=== PATIENT | female | born 1985 | race Caucasian/White ===

== ENCOUNTER 2016-08-13 17:50 | Emergency (ER) | payer OTHER ==
[~2016-08-13] VITALS: Ht 165.1 cm; Wt 50.5 kg
[~2016-08-13 17:50] MED LIST: PREN1CAP17 PO; ZOLO50TA PO
[2016-08-13 17:52] VITALS: BP 119/74; PULSE 74; RESP 16; TEMP 98.3; O2SAT 99
--- NOTE | 2016-08-13 18:14 | PD ---
HPI Chief Complaint: Related Problem Time Seen by Provider: 18:14 Travel History International Travel<30 days: No Contact w/Intl Traveler<30days: No Traveled to known affect area: No History of Present Illness HPI 31-year-old female, approx 7 weeks , presents to the emergency department with complaint of intermittent right lower quadrant abdominal cramping since yesterday. Reports nausea that is unchanged since nausea started during . Denies vomiting. Denies fever. Had a normal bowel movement today. Denies vaginal bleeding. Denies dysuria, but reports urinary frequency. Last menstrual period June 25. 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 Has an appointment scheduled on September 02 for first appointment. Allergies to penicillin. Has no other medical complaints. No other modifying factors or associated signs and symptoms. PFSH Past Medical History Hx Anticoagulant Therapy: No Cardiovascular Problems: No Chemotherapy: No Cerebrovascular Accident: No Diabetes: No Diminished Hearing: No Respiratory: No Immunizations Current: Yes ?: LMP: 06/25/16 : 2 Para: 1 Past Surgical History Hysterectomy: No Social History Alcohol Use: No Tobacco Use: No Substance Use: No Allergies-Medications (Allergen,Severity, Reaction): Coded Allergies: Penicillin (Verified Allergy, Severe, swelling, hives, 04/19/16) Reported Meds & Prescriptions Reported Meds & Active Scripts Active Macrobid (Nitrofurantoin Monohydrate Macrocrystals) 100 Mg Capsule 100 Mg PO BID 7 Days Review of Systems Except as stated in HPI: all other systems reviewed are Neg Physical Exam Narrative GENERAL: Well-nourished, well-developed female patient, in no acute distress; afebrile SKIN: Warm and dry. HEAD: Atraumatic. Normocephalic. EYES: Pupils equal and round. No scleral icterus. No injection or drainage. ENT: Mucosa pink and moist. Airway patent. NECK: Trachea midline. CARDIOVASCULAR: Regular rate and rhythm. No murmur appreciated. RESPIRATORY: No accessory muscle use. Clear to auscultation. Breath sounds equal bilaterally. GASTROINTESTINAL: Abdomen soft, tenderness on palpation to right lower quadrant , nondistended. Hepatic and splenic margins not palpable. Bowel sounds are active 4 quadrants. Nonrigid. No guarding. BACK: No CVA tenderness. MUSCULOSKELETAL: No obvious deformities. No clubbing. No cyanosis. No edema. NEUROLOGICAL: Awake and alert. Oriented 3. No obvious cranial nerve deficits. Motor grossly within normal limits. Normal speech. PSYCHIATRIC: Appropriate mood and affect; insight and judgment normal. Data Data Last Documented VS Vital Signs Date Time Temp Pulse Resp B/P Pulse Ox O2 Delivery O2 Flow Rate FiO2 08/13/16 20:45 75 14 109/58 100 Room Air 08/13/16 17:52 98.3 Orders Urinalysis - C+S If Indicated (08/13/16 18:14) Ed Urine Pregnancytest Poc (08/13/16 18:14) Beta Hcg (Quant/Titer) (08/13/16 18:18) Complete Blood Count With Diff (08/13/16 18:18) Comprehensive Metabolic Panel (08/13/16 18:18) Iv Access Insert/Monitor (08/13/16 18:18) Sodium Chlor 0.9% 1000 Ml Inj (Ns 1000 M (08/13/16 18:18) Sodium Chloride 0.9% Flush (Ns Flush) (08/13/16 18:30) Acetaminophen (Tylenol) (08/13/16 18:30) Us Pelvis (Ques Pr/Ect)W Trans (08/13/16 ) Potassium Chloride (Kcl) (08/13/16 20:30) Nitrofurantoin Monohyd Macrocr (Macrobid (08/13/16 20:30) Urine Culture (08/13/16 20:36) Labs Laboratory Tests Test 08/13/16 08/13/16 18:25 18:29 Urine Color YELLOW Urine Turbidity HAZY Urine pH 6.0 Urine Specific [place] 1.019 Urine Protein NEG mg/dL Urine Glucose (UA) NEG mg/dL Urine Ketones NEG mg/dL Urine Occult Blood NEG Urine Nitrite NEG Urine Bilirubin NEG Urine Urobilinogen LESS THAN 2.0 MG/DL Urine Leukocyte Esterase LARGE Urine WBC 2 /hpf Urine Squamous Epithelial 9 /hpf Cells Urine Bacteria OCC /hpf Urine Mucus FEW /lpf Microscopic Urinalysis Comment CULT NOT INDICATED White Blood Count 9.3 TH/MM3 Red Blood Count 4.30 MIL/MM3 Hemoglobin 12.6 GM/DL Hematocrit 37.2 % Mean Corpuscular Volume 86.5 FL Mean Corpuscular Hemoglobin 29.3 PG Mean Corpuscular Hemoglobin 33.8 % Concent Red Cell Distribution Width 13.1 % Platelet Count 224 TH/MM3 Mean Platelet Volume 8.8 FL Neutrophils (%) (Auto) 70.4 % Lymphocytes (%) (Auto) 21.7 % Monocytes (%) (Auto) 6.4 % Eosinophils (%) (Auto) 1.1 % Basophils (%) (Auto) 0.4 % Neutrophils # (Auto) 6.5 TH/MM3 Lymphocytes # (Auto) 2.0 TH/MM3 Monocytes # (Auto) 0.6 TH/MM3 Eosinophils # (Auto) 0.1 TH/MM3 Basophils # (Auto) 0.0 TH/MM3 CBC Comment DIFF FINAL Differential Comment Sodium Level 137 MEQ/L Potassium Level 3.3 MEQ/L Chloride Level 102 MEQ/L Carbon Dioxide Level 25.4 MEQ/L Anion Gap 10 MEQ/L Blood Urea Nitrogen 10 MG/DL Creatinine 0.56 MG/DL Estimat Glomerular Filtration 125 ML/MIN Rate Random Glucose 74 MG/DL Calcium Level 8.6 MG/DL Total Bilirubin 0.4 MG/DL Aspartate Amino Transf 8 U/L (AST/SGOT) Alanine Aminotransferase 15 U/L (ALT/SGPT) Alkaline Phosphatase 45 U/L Total Protein 7.4 GM/DL Albumin 4.0 GM/DL Human Chorionic Gonadotropin, 12663 MIU/ML Quant MDM Medical Decision Making Medical Screen Exam Complete: Yes Emergency Medical Condition: Yes Medical Record Reviewed: Yes Differential Diagnosis Pyelonephritis, UTI, appendicitis, ectopic Narrative Course 31-year-old female with right lower quadrant abdominal pain. She is approximately 7 weeks . Denies vaginal bleeding. Urine positive. IV site obtained. CBC, CMP, urinalysis, Tylenol, normal saline bolus , pelvic ultrasound with transvaginal ultrasound ordered. 190: Report given to MITCH Hope. See her note for final patient disposition. Scripts Nitrofurantoin Monohydrate Macrocrystals (Macrobid)100 Mg [id number] Mg PO BID 7 Days Ref 0 Prov:Irma Dinh 08/13/16 Amira Barraza August 13, 2016 18:14
[2016-08-13] MEDS ORDERED: SODIUM CHLOR 0.9% 1000 ML INJ 1,000 ML IV SCH (18:18)
[2016-08-13] MEDS ORDERED: ACETAMINOPHEN 325 MG TAB PO ONE (18:30)
[2016-08-13] MEDS ORDERED: SODIUM CHLORIDE 0.9% FLUSH 10 ML FLUSH IV FLUSH PRN (18:30)
[2016-08-13 19:05] LABS: AUTOMATED NEUTROPHIL # 6.5 TH/MM3 (1.8-7.7); BASOPHIL % 0.4 % (0.0-2.0); EOSINOPHIL # 0.1 TH/MM3 (0-0.4); EOSINOPHIL % 1.1 % (0.0-4.0); HEMATOCRIT 37.2 % (35.0-46.0); HEMO FLAGS DIFF FINAL; LYMPH % 21.7 % (9.0-44.0); MEAN CELL VOLUME 86.5 FL (80.0-100.0); MEAN CORPUSCULAR HEMOGLOBIN 29.3 PG (27.0-34.0); MEAN CORPUSCULAR HGB CONC 33.8 % (32.0-36.0); MONO % 6.4 % (0.0-8.0); NEUT % 70.4 % (16.0-70.0); PLATELET COUNT 224 TH/MM3 (150-450); RED CELL DISTRIBUTION WIDTH 13.1 % (11.6-17.2); WHITE BLOOD COUNT 9.3 TH/MM3 (4.0-11.0)
[2016-08-13 19:22] LABS: BACTERIA, URINE OCC /hpf; BLOOD, URINE NEG (NEG); COMMENT (UR) CULT NOT INDICATED; CULTURE IF INDICATED CULT NOT INDICATED; GLUCOSE,URINE NEG (NEG); KETONE, URINE NEG (NEG); MUCUS URINE FEW /lpf (OCC); NITRITE,URINE NEG (NEG); SQUAMOUS EPITHELIAL CELL URINE 9 /hpf (0-5); URINE COLOR YELLOW (YELLW/STRAW)
[2016-08-13 19:37] LABS: ANION GAP 10 MEQ/L (5-15); AST (GOT) 8 U/L (15-37); BICARBONATE 25.4 MEQ/L (21.0-32.0); BLOOD UREA NITROGEN 10 MG/DL (7-18); CHLORIDE 102 MEQ/L (98-107); GLOMERULAR FILTRATION RATE 125 ML/MIN (>89); POTASSIUM 3.3 MEQ/L (3.5-5.1); SODIUM (NA) 137 MEQ/L (136-145)
[2016-08-13 19:56] LABS: ALKALINE PHOSPHATASE 45 U/L (45-117); ALT (GPT) 15 U/L (10-53); BETA HCG QUANT 45690 MIU/ML (0-5); TOTAL BILIRUBIN ADULT 0.4 MG/DL (0.2-1.0)
--- NOTE | 2016-08-13 20:25 | PD ---
Data Data Last Documented VS Vital Signs Date Time Temp Pulse Resp B/P Pulse Ox O2 Delivery O2 Flow Rate FiO2 08/13/16 20:45 75 14 109/58 100 Room Air 08/13/16 17:52 98.3 Orders Urinalysis - C+S If Indicated (08/13/16 18:14) Ed Urine Pregnancytest Poc (08/13/16 18:14) Beta Hcg (Quant/Titer) (08/13/16 18:18) Complete Blood Count With Diff (08/13/16 18:18) Comprehensive Metabolic Panel (08/13/16 18:18) Iv Access Insert/Monitor (08/13/16 18:18) Sodium Chlor 0.9% 1000 Ml Inj (Ns 1000 M (08/13/16 18:18) Sodium Chloride 0.9% Flush (Ns Flush) (08/13/16 18:30) Acetaminophen (Tylenol) (08/13/16 18:30) Us Pelvis (Ques Pr/Ect)W Trans (08/13/16 ) Potassium Chloride (Kcl) (08/13/16 20:30) Nitrofurantoin Monohyd Macrocr (Macrobid (08/13/16 20:30) Urine Culture (08/13/16 20:36) Labs Laboratory Tests Test 08/13/16 08/13/16 18:25 18:29 Urine Color YELLOW Urine Turbidity HAZY Urine pH 6.0 Urine Specific [place] 1.019 Urine Protein NEG mg/dL Urine Glucose (UA) NEG mg/dL Urine Ketones NEG mg/dL Urine Occult Blood NEG Urine Nitrite NEG Urine Bilirubin NEG Urine Urobilinogen LESS THAN 2.0 MG/DL Urine Leukocyte Esterase LARGE Urine WBC 2 /hpf Urine Squamous Epithelial 9 /hpf Cells Urine Bacteria OCC /hpf Urine Mucus FEW /lpf Microscopic Urinalysis Comment CULT NOT INDICATED White Blood Count 9.3 TH/MM3 Red Blood Count 4.30 MIL/MM3 Hemoglobin 12.6 GM/DL Hematocrit 37.2 % Mean Corpuscular Volume 86.5 FL Mean Corpuscular Hemoglobin 29.3 PG Mean Corpuscular Hemoglobin 33.8 % Concent Red Cell Distribution Width 13.1 % Platelet Count 224 TH/MM3 Mean Platelet Volume 8.8 FL Neutrophils (%) (Auto) 70.4 % Lymphocytes (%) (Auto) 21.7 % Monocytes (%) (Auto) 6.4 % Eosinophils (%) (Auto) 1.1 % Basophils (%) (Auto) 0.4 % Neutrophils # (Auto) 6.5 TH/MM3 Lymphocytes # (Auto) 2.0 TH/MM3 Monocytes # (Auto) 0.6 TH/MM3 Eosinophils # (Auto) 0.1 TH/MM3 Basophils # (Auto) 0.0 TH/MM3 CBC Comment DIFF FINAL Differential Comment Sodium Level 137 MEQ/L Potassium Level 3.3 MEQ/L Chloride Level 102 MEQ/L Carbon Dioxide Level 25.4 MEQ/L Anion Gap 10 MEQ/L Blood Urea Nitrogen 10 MG/DL Creatinine 0.56 MG/DL Estimat Glomerular Filtration 125 ML/MIN Rate Random Glucose 74 MG/DL Calcium Level 8.6 MG/DL Total Bilirubin 0.4 MG/DL Aspartate Amino Transf 8 U/L (AST/SGOT) Alanine Aminotransferase 15 U/L (ALT/SGPT) Alkaline Phosphatase 45 U/L Total Protein 7.4 GM/DL Albumin 4.0 GM/DL Human Chorionic Gonadotropin, [address] MIU/ML Quant MDM Supervised Visit with MARTHA: Yes Narrative Course I, Dr. Tate, have reviewed the advance practice practitioner's documentation and am in agreement, met with the patient face to face, made the diagnosis, and the medical decision making was done by me. *My assessment and Findings: Examine the patient's belly and she really has minimal superficial tenderness. There is no rebound no percussive tenderness. No tenderness to deep palpation. The patient does have a cyst on the right side of the abdomen which could be consistent with a dermoid cyst which could lead to her pain. The other possibilities her round ligament pain. She does have some small subchorionic hemorrhage and could also be miscarrying. However the patient does look stable and her labs are reassuring. I do not believe there is indication for MRI at this time. Discussed the patient that there is a very unlikely possibility of appendicitis how have her I think that foregoing MRI at this time is appropriate. Discussed return to ED criteria with her and follow up with her OB /MORTGAGE BRANCH MANAGER. Scripts Nitrofurantoin Monohydrate Macrocrystals (Macrobid)100 Mg [id number] Mg PO BID 7 Days Ref 0 Prov:FabrizioIrma 08/13/16 Disposition: 01 DISCHARGE HOME Condition: Stable Manuel Tate MD August 13, 2016 20:25
[2016-08-13] MEDS ORDERED: NITROFURANTOIN MONOHYD MACROCR 100 MG CAP PO ONE (20:30)
[2016-08-13] MEDS ORDERED: POTASSIUM CHLORIDE 20 MEQ CONTROLLED RELEASE TAB PO ONE (20:30)
--- NOTE | 2016-08-13 20:30 | PD ---
Physical Exam Date Seen by Provider: August 13, 2016 Time Seen by Provider: 20:24 Narrative I resumed care from MITCH Collier. Patient is awaiting lab results and US results. She has intermittent right lower quadrant pain. GENERAL: Well-nourished, well-developed female patient, ambulatory. Afebrile. SKIN: Focused skin assessment warm/dry. HEAD: Normocephalic. Atraumatic. EYES: No scleral icterus. No injection or drainage. NECK: Supple, trachea midline. No JVD or lymphadenopathy. CARDIOVASCULAR: Regular rate and rhythm without murmurs, gallops, or rubs. RESPIRATORY: Breath sounds equal bilaterally. No accessory muscle use. Lungs sounds are clear to auscultation. GASTROINTESTINAL: Abdomen soft and nondistended. Patient has mild right-sided tenderness lateral to the umbilicus. No McBurney's point tenderness. MUSCULOSKELETAL: No cyanosis, or edema. BACK: Nontender without obvious deformity. No CVA tenderness. Data Data Last Documented VS Vital Signs Date Time Temp Pulse Resp B/P Pulse Ox O2 Delivery O2 Flow Rate FiO2 08/13/16 20:45 75 14 109/58 100 Room Air 08/13/16 17:52 98.3 Orders Urinalysis - C+S If Indicated (08/13/16 18:14) Ed Urine Pregnancytest Poc (08/13/16 18:14) Beta Hcg (Quant/Titer) (08/13/16 18:18) Complete Blood Count With Diff (08/13/16 18:18) Comprehensive Metabolic Panel (08/13/16 18:18) Iv Access Insert/Monitor (08/13/16 18:18) Sodium Chlor 0.9% 1000 Ml Inj (Ns 1000 M (08/13/16 18:18) Sodium Chloride 0.9% Flush (Ns Flush) (08/13/16 18:30) Acetaminophen (Tylenol) (08/13/16 18:30) Us Pelvis (Ques Pr/Ect)W Trans (08/13/16 ) Potassium Chloride (Kcl) (08/13/16 20:30) Nitrofurantoin Monohyd Macrocr (Macrobid (08/13/16 20:30) Urine Culture (08/13/16 20:36) Labs Laboratory Tests Test 08/13/16 08/13/16 18:25 18:29 Urine Color YELLOW Urine Turbidity HAZY Urine pH 6.0 Urine Specific [place] 1.019 Urine Protein NEG mg/dL Urine Glucose (UA) NEG mg/dL Urine Ketones NEG mg/dL Urine Occult Blood NEG Urine Nitrite NEG Urine Bilirubin NEG Urine Urobilinogen LESS THAN 2.0 MG/DL Urine Leukocyte Esterase LARGE Urine WBC 2 /hpf Urine Squamous Epithelial 9 /hpf Cells Urine Bacteria OCC /hpf Urine Mucus FEW /lpf Microscopic Urinalysis Comment CULT NOT INDICATED White Blood Count 9.3 TH/MM3 Red Blood Count 4.30 MIL/MM3 Hemoglobin 12.6 GM/DL Hematocrit 37.2 % Mean Corpuscular Volume 86.5 FL Mean Corpuscular Hemoglobin 29.3 PG Mean Corpuscular Hemoglobin 33.8 % Concent Red Cell Distribution Width 13.1 % Platelet Count 224 TH/MM3 Mean Platelet Volume 8.8 FL Neutrophils (%) (Auto) 70.4 % Lymphocytes (%) (Auto) 21.7 % Monocytes (%) (Auto) 6.4 % Eosinophils (%) (Auto) 1.1 % Basophils (%) (Auto) 0.4 % Neutrophils # (Auto) 6.5 TH/MM3 Lymphocytes # (Auto) 2.0 TH/MM3 Monocytes # (Auto) 0.6 TH/MM3 Eosinophils # (Auto) 0.1 TH/MM3 Basophils # (Auto) 0.0 TH/MM3 CBC Comment DIFF FINAL Differential Comment Sodium Level 137 MEQ/L Potassium Level 3.3 MEQ/L Chloride Level 102 MEQ/L Carbon Dioxide Level 25.4 MEQ/L Anion Gap 10 MEQ/L Blood Urea Nitrogen 10 MG/DL Creatinine 0.56 MG/DL Estimat Glomerular Filtration 125 ML/MIN Rate Random Glucose 74 MG/DL Calcium Level 8.6 MG/DL Total Bilirubin 0.4 MG/DL Aspartate Amino Transf 8 U/L (AST/SGOT) Alanine Aminotransferase 15 U/L (ALT/SGPT) Alkaline Phosphatase 45 U/L Total Protein 7.4 GM/DL Albumin 4.0 GM/DL Human Chorionic Gonadotropin, 53590 MIU/ML Quant [facility] Medical Record Reviewed: Yes Supervised Visit with MARTHA: No Interpretation(s) Last Impressions Pelvis Ultrasound 08/13/16 0000 Signed Impressions: Service Date/Time: Saturday, August 13, 2016 19:12 - CONCLUSION: 1. 6 week 6 day gestational age intrauterine with 126 beats per minute heart rate. 2. Tiny subchorionic hemorrhage. 3. 1.9 cm complex cyst involving the right ovary likely related to a corpus little cyst. Ellis Lakhani Jr., MD Narrative Course 31-year-old female presents to the emergency department for intermittent right lower quadrant abdominal cramping. She reports being approximately 7 weeks . Patient was originally seen by MITCH Collier and signed out to me. CBC [place] [address]. CMP shows hypokalemia of 3.3. UA shows large leukocyte esterase and some bacteria. US shows 6 week 6 day gestational age intrauterine with 126 beats per minute heart rate; tiny subchorionic hemorrhage; 1.9 cm complex cyst involving the right ovary likely related to a corpus little cyst. Patient is given potassium 20 meq PO and Macrobid 100mg PO in the emergency department. My attending physician, Dr. Tate, examined the patient and agrees with plan and disposition. Symptoms and physical are not consistent with appendicitis. However, she is instructed to return immediately for any worsening symptoms or fever. She is instructed to return in 48 hours for repeat beta HCG and abdominal exam. She is agreeable. Diagnosis Primary Impression: Intrauterine Additional Impression: Urinary tract infection Qualified Code: N30.00 - Acute cystitis without hematuria Referrals: Film Processing Utility Worker 2 days Patient Instructions: First Trimester (ED), General Instructions, Urinary Tract Infection in (ED) Additional Instruction: Return in 2 days for repeat beta hCG and repeat abdominal exam. Return sooner if you have any worsening abdominal pain or fever. Take Macrobid as directed until gone. Follow-up with your dance instructor. Return to the emergency department for any acute worsening of symptoms. Med/Other Pt SpecificInfo: Prescription(s) given Scripts Nitrofurantoin Monohydrate Macrocrystals (Macrobid)100 Mg [id number] Mg PO BID 7 Days Ref 0 Prov:Irma Dinh 08/13/16 Disposition: 01 DISCHARGE HOME Condition: Stable Irma Dinh August 13, 2016 20:30
[2016-08-13 20:45] VITALS: BP 109/58; PULSE 75; RESP 14; O2SAT 100
--- NOTE | 2016-08-13 21:08 | RADRPT ---
EXAM DATE/TIME: 08/13/2016 19:12 [place] COMPARISON: No previous studies available for comparison. INDICATIONS : Pelvic pain with . LAB(S): Beta-hC MEDICAL HISTORY : . . SURGICAL HISTORY : None. ENCOUNTER: Subsequent ACUITY: 1 day PAIN SCORE: 2/10 LOCATION: Bilateral pelvis MEASUREMENTS: UTERUS: 10.5 x 6.2 x 5.5 cm ENDOMETRIAL STRIPE: 3 mm RIGHT OVARY: 3.5 x 2.8 x 2.1 cm LEFT OVARY: 2.4 x 1.5 x 1.0 cm FREE FLUID: No CROWN RUMP LENGTH: 0.9 cm = 6 WKS 6 DAYS FHR: 126 BPM FINDINGS: UTERUS: A single intrauterine gestation observed. A well-formed gestational sac and no sac noted. [place]-rump length measures 0.89 cm which equals 6 weeks 6 days gestational age. heart rate of 126 beats pe r minute. A small focus of decreased echogenicity consistent with a small subchorionic hemorrhage. Ut erus is within the midline. RIGHT OVARY: A 1.9 cm nearly isoechoic cystic structure is seen on the right ovary. There is posterior acoustical enhancement. The right ovary is otherwise unremarkable. No hyperemia. LEFT OVARY: Ovary contains no mass or significant cystic lesion. MISCELLANEOUS: No free fluid. CONCLUSION: 1. 6 week 6 day gestational age intrauterine with 126 beats per minute heart rate. 2. Tiny subchorionic hemorrhage. 3. 1.9 cm complex cyst involving the right ovary likely related to a corpus little cyst. Ellis Lakhani Jr., MD on August 13, 2016 at 21:01 Board Certified Radiologist. This report was verified electronically.
[2016-08-13] MEDS ORDERED: MACR100C2 PO (21:25)
[2016-09-02] MEDS ORDERED: PREN1CAP PO (11:12)
== END 2016-08-13 21:46 | disposition home or self-care (01) ==
LOC: NEPD 17:50
DX: O23.31 Infections of other parts of urinary tract in pregnancy, first trimester (principal); O99.281 Endocrine, nutritional and metabolic diseases complicating pregnancy, first trimester; O46.91 Antepartum hemorrhage, unspecified, first trimester; O26.891 Other specified pregnancy related conditions, first trimester; E87.6 Hypokalemia
CPT/HCPCS: 76700; 76817; 80053; 81001; 84702; 84703; 85025; 96360; 99285; J7030

== ENCOUNTER 2016-08-15 15:37 | Emergency (ER) | payer OTHER ==
[~2016-08-15] VITALS: Ht 152.4 cm; Wt 51.0 kg
[~2016-08-15 15:37] MED LIST changes: +MACR100C2 PO; -PREN1CAP17 PO; -ZOLO50TA PO
[2016-08-15 15:39] VITALS: BP 114/58; PULSE 78; RESP 14; TEMP 98.7; O2SAT 100
--- NOTE | 2016-08-15 15:45 | PD ---
HPI . here for beta hcg recheck Chief Complaint: Related Problem Time Seen by Provider: 15:45 Travel History International Travel<30 days: No Contact w/Intl Traveler<30days: No Traveled to known affect area: No History of Present Illness HPI 31 yr old female with a miscarriage here to have her beta hCG level checked again. Patient was in here on August 13 with right sided abdominal pain. Ultrasound was done and demonstrated a 6 week 6 day intrauterine with heartbeat around 126. Patient was advised to return to the emergency department today to check beta hCG levels. She denies any abdominal pain. She tells me that occasionally if she sits for a long. Of time she may start to have some right sided pain. Denies any nausea, vomiting, chest pain, shortness of breath, or GI symptoms. PFSH Past Medical History Hx Anticoagulant Therapy: No Cardiovascular Problems: No Chemotherapy: No Cerebrovascular Accident: No Diabetes: No Diminished Hearing: No Respiratory: No Immunizations Current: Yes ?: LMP: 06/25/16 : 2 Para: 1 Past Surgical History Hysterectomy: No Social History Alcohol Use: No Tobacco Use: No Substance Use: No Allergies-Medications (Allergen,Severity, Reaction): Coded Allergies: Penicillin (Verified Allergy, Severe, swelling, hives, 04/19/16) Reported Meds & Prescriptions Reported Meds & Active Scripts Active Macrobid (Nitrofurantoin Monohydrate Macrocrystals) 100 Mg Capsule 100 Mg PO BID 7 Days Review of Systems General / Constitutional: No: Fever Eyes: No: Visual changes HENT: No: Headaches Cardiovascular: No: Chest Pain or Discomfort Respiratory: No: Shortness of Breath Gastrointestinal: No: Abdominal Pain Genitourinary: No: Dysuria Musculoskeletal: No: Pain Skin: No Rash Neurologic: No: Weakness Psychiatric: No: Depression Endocrine: No: Polydipsia Hematologic/Lymphatic: No: Easy Bruising Physical Exam Narrative GENERAL: AAO x 3, no acute distress, Well-nourished, well-developed patient. SKIN: Warm and dry. No visible rashes or bruising. HEAD: Normocephalic and atraumatic. EYES: No scleral icterus. No injection or drainage. ENT: No nasal drainage noted. Mucous membranes pink. Airway patent. NECK: Supple, trachea midline. No JVD. CARDIOVASCULAR: Regular rate and rhythm without murmurs, gallops, or rubs. RESPIRATORY: Breath sounds equal bilaterally. No accessory muscle use. No rhonchi or rales. GASTROINTESTINAL: Abdomen soft, non-tender, nondistended. EXTREMITIES: No cyanosis or edema. BACK: Nontender without obvious deformity. No CVA tenderness. PSYCH: AAO x 3, normal affect. Data Data Last Documented VS Vital Signs Date Time Temp Pulse Resp B/P Pulse Ox O2 Delivery O2 Flow Rate FiO2 08/15/16 15:46 16 08/15/16 15:39 98.7 78 114/58 100 Orders Beta Hcg (Quant/Titer) (08/15/16 15:50) Labs Laboratory Tests Test 08/15/16 15:50 Human Chorionic Gonadotropin, [address] MIU/ML Quant MDM Medical Decision Making Medical Screen Exam Complete: Yes Emergency Medical Condition: Yes Medical Record Reviewed: Yes Differential Diagnosis , less likely miscarriage, corpus luteal cyst Narrative Course 31-year-old female here approximately 7 weeks . She is here for repeat beta hCG. Bedside ultrasound was performed by Dr. Quinn. There is single intrauterine and heartbeat appears strong. Beta-hCG level was ordered. recommends discharge. We recommend f/u with CAVITY PUMP OPERATOR. Followed up levels and they are increasing. Patient verbalized understanding of instructions, questions were answered, and thanked me for their care. I advised them if their condition worsens, please return to the nearest emergency room for further care. Diagnosis Primary Impression: Intrauterine Patient Instructions: General Instructions Additional Instructions: Please keep your appointment with her CAVITY PUMP OPERATOR. If you develop any sudden onset of abdominal pain or abnormal bleeding, go to the nearest emergency department. Med/Other Pt SpecificInfo: No Change to Meds Disposition: 01 DISCHARGE HOME Condition: Stable Marissa Yates August 15, 2016 15:45
--- NOTE | 2016-08-15 16:00 | PD ---
Physical Exam Narrative Patient was seen and examined with my web press operator assistant. Data Data Last Documented VS Vital Signs Date Time Temp Pulse Resp B/P Pulse Ox O2 Delivery O2 Flow Rate FiO2 08/15/16 15:46 16 08/15/16 15:39 98.7 78 114/58 100 Orders Beta Hcg (Quant/Titer) (08/15/16 15:50) Labs Laboratory Tests Test 08/15/16 15:50 Human Chorionic Gonadotropin, [address] MIU/ML Quant MDM Supervised Visit with MARTHA: Yes Procedures Procedure Narrative Emergency Department Pelvic ultrasound was performed with patient consent. The curvilinear probe was used in the transverse and sagittal views within the suprapubic region revealing single intrauterine . heart rate was present in around 140s Antonio Quinn MD August 15, 2016 16:00
[2016-08-15 16:51] LABS: BETA HCG QUANT 53141 MIU/ML (0-5)
[2016-09-02] MEDS ORDERED: PREN1CAP PO (11:12)
== END 2016-08-15 16:13 | disposition home or self-care (01) ==
LOC: NEPD 15:37
DX: O26.891 Other specified pregnancy related conditions, first trimester (principal); R10.9 Unspecified abdominal pain; Z3A.01 Less than 8 weeks gestation of pregnancy
CPT/HCPCS: 84702; 99284

== ENCOUNTER 2016-08-26 17:05 | Emergency (ER) | payer OTHER ==
[~2016-08-26] VITALS: Ht 152.4 cm; Wt 50.0 kg
[2016-08-26 17:06] VITALS: BP 123/68; PULSE 80; RESP 20; TEMP 98.5; O2SAT 100
--- NOTE | 2016-08-26 17:12 | PD ---
Physical Exam Date Seen by Provider: Aug 26, 2016 Time Seen by Provider: 17:08 Data Data Last Documented VS Vital Signs Date Time Temp Pulse Resp B/P Pulse Ox O2 Delivery O2 Flow Rate FiO2 08/26/16 17:06 98.5 80 20 123/68 100 Room Air MDM Supervised Visit with MARTHA: No Narrative Course 31 YO (9 weeks by US) female with complaint of 1 day history 7/10 abdominal pain. Denies vaginal bleeding, urinary symptoms, fevers, N/V/D. LMP 4/7 Vitals reviewed. Patient awaiting bed placement. Kim Villa Aug 26, 2016 17:12
--- NOTE | 2016-08-26 17:49 | PD ---
HPI Chief Complaint: Abdominal Pain Time Seen by Provider: 17:40 Travel History International Travel<30 days: No Contact w/Intl Traveler<30days: No Traveled to known affect area: No History of Present Illness HPI 31-year-old female presently 9 weeks here for evaluation of abdominal pain. The patient reports that while at work today she experienced sudden onset umbilical pain which she described as pressure. She states it was 7 out of 10 and currently it is significantly better. No history of abdominal surgeries. No vaginal bleeding or discharge. No fevers or chills. No nausea or vomiting. No urinary symptoms. About 2 weeks ago the patient was seen here and had a pelvic ultrasound that showed an IUP with a right corpus luteal cyst. PFSH Past Medical History Hx Anticoagulant Therapy: No Cardiovascular Problems: No Chemotherapy: No Cerebrovascular Accident: No Diabetes: No Diminished Hearing: No Respiratory: No Immunizations Current: Yes ?: LMP: june 25 : 2 Para: 1 Past Surgical History Hysterectomy: No Social History Alcohol Use: No Tobacco Use: No Substance Use: No Allergies-Medications (Allergen,Severity, Reaction): Coded Allergies: Penicillin (Verified Allergy, Severe, swelling, hives, 08/26/16) Reported Meds & Prescriptions Reported Meds & Active Scripts Active No Active Prescriptions or Reported Medications Review of Systems Except as stated in HPI: all other systems reviewed are Neg Physical Exam Narrative GENERAL: Well-developed, well-nourished, comfortable, no acute distress. SKIN: Focused skin assessment warm/dry. HEAD: Atraumatic. Normocephalic. EYES: Pupils equal and round. No scleral icterus. No injection or drainage. ENT: No nasal bleeding or discharge. Mucous membranes pink and moist. CARDIOVASCULAR: Regular rate and rhythm. No murmur appreciated. RESPIRATORY: No accessory muscle use. Clear to auscultation. Breath sounds equal bilaterally. GASTROINTESTINAL: Abdomen soft, non-tender, nondistended. No peritoneal signs. MUSCULOSKELETAL: No obvious deformities. No clubbing. No cyanosis. No edema. NEUROLOGICAL: Awake and alert. No obvious cranial nerve deficits. Motor grossly within normal limits. Normal speech. PSYCHIATRIC: Appropriate mood and affect; insight and judgment normal. Data Data Last Documented VS Vital Signs Date Time Temp Pulse Resp B/P Pulse Ox O2 Delivery O2 Flow Rate FiO2 08/26/16 17:06 98.5 80 20 123/68 100 Room Air Orders Urinalysis - C+S If Indicated (08/26/16 17:46) Labs Laboratory Tests Test 08/26/16 17:50 Urine Color YELLOW Urine Turbidity CLEAR Urine pH 7.0 Urine Specific [place] 1.025 Urine Protein TRACE mg/dL Urine Glucose (UA) NEG mg/dL Urine Ketones NEG mg/dL Urine Occult Blood NEG Urine Nitrite NEG Urine Bilirubin NEG Urine Urobilinogen LESS THAN 2.0 MG/DL Urine Leukocyte Esterase MOD Urine RBC 1 /hpf Urine WBC LESS THAN 1 /hpf Urine Squamous Epithelial 6 /hpf Cells Urine Bacteria OCC /hpf Urine Mucus MOD /lpf Microscopic Urinalysis Comment CULT NOT INDICATED MDM Medical Decision Making Medical Screen Exam Complete: Yes Emergency Medical Condition: Yes Medical Record Reviewed: Yes Differential Diagnosis Abdominal pain and , appendicitis less likely, cholecystitis less likely Narrative Course Bedside ultrasound performed by me shows an IUP with heart rate of 167 bpm. Vital signs show heart rate 80, blood pressure 123/68, pulse ox 100% on room air , oral temp of 98.5F. UA shows moderate leukocyte esterase, occasional bacteria, moderate mucus. Vision is very well-appearing. Her abdominal exam is benign. I do not believe that there is an acute intra-abdominal/surgical process to warrant imaging at this time. She is stable for discharge home with outpatient follow-up with her SPOTTER DRIVER appointment she has an appointment with next week. She was informed on when to return to the emergency department. She verbalizes understanding and agreement with plan. Procedures Procedure Narrative Bedside transabdominal ultrasound: Using the curvilinear ultrasound probe, a bedside transabdominal ultrasound was performed by me and shows an IUP with heart rate of 167 bpm. Diagnosis Primary Impression: Bacteriuria during Additional Impression: Abdominal pain during Qualified Code: O26.891 - Abdominal pain during , first trimester Referrals: Air Press Operator 1 week Additional Instructions: Follow-up with your SPOTTER DRIVER physician this week. Return to the emergency department for worsening symptoms or any other concerns. Scripts Nitrofurantoin Monohydrate Macrocrystals (Macrobid)100 Mg [id number] Mg PO BID 7 Days Ref 0 Prov:Aguila Olson MD 08/26/16 Disposition: 01 DISCHARGE HOME Condition: Stable Aguila Olson MD Aug 26, 2016 17:49
[2016-08-26 18:13] LABS: BACTERIA, URINE OCC /hpf; BLOOD, URINE NEG (NEG); COMMENT (UR) CULT NOT INDICATED; CULTURE IF INDICATED CULT NOT INDICATED; GLUCOSE,URINE NEG (NEG); KETONE, URINE NEG (NEG); MUCUS URINE MOD /lpf (OCC); NITRITE,URINE NEG (NEG); SQUAMOUS EPITHELIAL CELL URINE 6 /hpf (0-5); URINE COLOR YELLOW (YELLW/STRAW)
[2016-08-26] MEDS ORDERED: MACR100C2 PO (18:19)
[2016-09-02] MEDS ORDERED: PREN1CAP PO (11:12)
== END 2016-08-26 18:57 | disposition home or self-care (01) ==
LOC: NEPD 17:05
DX: O26.891 Other specified pregnancy related conditions, first trimester (principal); R10.9 Unspecified abdominal pain; Z3A.09 9 weeks gestation of pregnancy
CPT/HCPCS: 81001; 99284

== ENCOUNTER 2016-09-09 17:49 | Emergency (ER) | payer OTHER ==
[~2016-09-09] VITALS: Ht 152.4 cm; Wt 49.5 kg
[~2016-09-09 17:49] MED LIST changes: +PREN1CAP PO
[2016-09-09 17:53] VITALS: BP 112/79; PULSE 82; RESP 16; TEMP 98.8; O2SAT 100
--- NOTE | 2016-09-09 18:28 | PD ---
HPI Chief Complaint: Chest Pain Time Seen by Provider: 18:21 Travel History International Travel<30 days: No Contact w/Intl Traveler<30days: No Traveled to known affect area: No History of Present Illness HPI 31-year-old female who is approximately 11 weeks here for evaluation of chest pain and shortness of breath. The patient has had intermittent episodes where she feels as though she is short of breath and needs to gasp for air. 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 Patient reports substernal chest pain which is worse with palpation. She also believes she may be having some heartburn. No history of DVT or PE. Pain is not pleuritic. No fevers, chills, cough, recent illness. No hemoptysis. No calf pain or swelling. PFSH Past Medical History Hx Anticoagulant Therapy: No Cardiovascular Problems: No Chemotherapy: No Cerebrovascular Accident: No Diabetes: No Diminished Hearing: No Respiratory: No Immunizations Current: Yes ?: : 3 Para: 1 Miscarriage: 1 Past Surgical History Hysterectomy: No Social History Alcohol Use: No Tobacco Use: No Substance Use: No Allergies-Medications (Allergen,Severity, Reaction): Coded Allergies: Penicillin (Verified Allergy, Severe, swelling, hives, 09/09/16) Reported Meds & Prescriptions Reported Meds & Active Scripts Active Pepcid (Famotidine) 20 Mg Tab 20 Mg PO HS Vitafol Ultra 29-0.6-0.4-200 mg ( Vit W/ Fe Polysacch C) 1 Cap Cap 1 Tab PO DAILY Review of Systems Except as stated in HPI: all other systems reviewed are Neg Physical Exam Narrative GENERAL: Well-developed, well-nourished, comfortable, no acute distress. SKIN: Focused skin assessment warm/dry. HEAD: Atraumatic. Normocephalic. EYES: Pupils equal and round. No scleral icterus. No injection or drainage. ENT: Mucous membranes pink and moist. NECK: Trachea midline. No JVD. CARDIOVASCULAR: Regular rate and rhythm. RESPIRATORY: No accessory muscle use. Clear to auscultation. Breath sounds equal bilaterally. MUSCULOSKELETAL: No obvious deformities. No clubbing. No cyanosis. No edema. Bilateral calves are supple, nontender. NEUROLOGICAL: Awake and alert. No obvious cranial nerve deficits. Motor grossly within normal limits. Normal speech. PSYCHIATRIC: Appropriate mood and affect; insight and judgment normal. Data Data Last Documented VS Vital Signs Date Time Temp Pulse Resp B/P Pulse Ox O2 Delivery O2 Flow Rate FiO2 09/09/16 18:30 68 15 99 09/09/16 17:53 98.8 112/79 Orders Electrocardiogram (09/09/16 ) MDM Medical Decision Making Medical Screen Exam Complete: Yes Emergency Medical Condition: Yes Medical Record Reviewed: Yes Differential Diagnosis ACS, pneumothorax, pericarditis, PE, pneumonia, musculoskeletal pain, GERD Narrative Course Initial vital signs show heart rate 82, blood pressure 112/79, pulse ox 100% on room air, oral temp of 98.8F. EKG shows sinus rhythm, rate 66, normal axis, normal intervals, no acute ischemic abnormality. On physical exam the patient is very comfortable. Her lung sounds are clear and equal bilaterally. Her pain is reproducible with palpation of her sternum. I do not believe that her symptoms are cardiopulmonary in nature. I have a very low suspicion for PE based on physical exam and history. On reassessment the patient is again very comfortable. She is in no respiratory distress. She was made aware of my thought process regarding her symptoms. Again she believes she may have some reflux type symptoms. For this I will start her on Pepcid. CIGARETTE PACKER follow-up this week. She was informed on when to return to the emergency department. She verbalizes understanding and agreement with plan. Diagnosis Primary Impression: Atypical chest pain Referrals: Flight Instructor 3 days Additional Instructions: Follow-up with your primary care physician this week. Follow-up with your CIGARETTE PACKER physician this week. Return to the emergency department for worsening symptoms or any other concerns. Scripts Famotidine (Pepcid)20 Mg Tab20 Mg PO HS #30 TAB Ref 0 Prov:Aguila Olson MD 09/09/16 Disposition: 01 DISCHARGE HOME Condition: Stable Aguila Olson MD Sep 09, 2016 18:27
[2016-09-09] MEDS ORDERED: FAMO1TAB37 PO (19:03)
--- NOTE | 2016-09-10 16:09 | EKG ---
Date Performed: 09/09/2016 Time Performed: 18:36:57 PTAGE: 31 years EKG: Sinus rhythm NORMAL ECG NO PREVIOUS TRACING DOCTOR: Juan Miguel Kemp Interpretating Date/Time 09/10/2016 16:07:37
== END 2016-09-09 19:37 | disposition home or self-care (01) ==
LOC: NEPD 17:49
DX: O26.91 Pregnancy related conditions, unspecified, first trimester (principal); R07.89 Other chest pain; R06.02 Shortness of breath; Z3A.11 11 weeks gestation of pregnancy
CPT/HCPCS: 93005; 99283

== ENCOUNTER 2016-09-24 15:11 | Emergency (ER) | payer OTHER ==
[~2016-09-24] VITALS: Ht 152.4 cm; Wt 50.0 kg
[~2016-09-24 15:11] MED LIST changes: +FAMO1TAB37 PO; -MACR100C2 PO
[2016-09-24 15:14] VITALS: BP 107/60; PULSE 82; RESP 16; TEMP 98.5; O2SAT 99
--- NOTE | 2016-09-24 15:22 | PD ---
Physical Exam Time Seen by Provider: 15:19 Narrative 31yo F, approx 13 weeks , c/o sharp shooting pain to mid lower abdomen since this morning. Reports light brown mucous vag dc this morning, but has not continued throughout the day. Pain has decreased since this morning. Denies urinary symptoms. Patient seen in triage. VS reviewed. Awaiting bed placement. Data Data Last Documented VS Vital Signs Date Time Temp Pulse Resp B/P Pulse Ox O2 Delivery O2 Flow Rate FiO2 09/24/16 15:14 98.5 82 16 107/60 99 Room Air MDM Supervised Visit with MARTHA: Amira Aburto Sep 24, 2016 15:22
[2016-09-24 16:22] LABS: BACTERIA, URINE MOD /hpf; BLOOD, URINE MOD (NEG); COMMENT (UR) CULTURE INDICATED; CULTURE IF INDICATED CULTURE INDICATED; GLUCOSE,URINE NEG (NEG); KETONE, URINE NEG (NEG); MUCUS URINE MANY /lpf (OCC); NITRITE,URINE NEG (NEG); SQUAMOUS EPITHELIAL CELL URINE 8 /hpf (0-5); URINE COLOR YELLOW (YELLW/STRAW)
[2016-09-24] MEDS ORDERED: CEPH-460 PO (16:27)
--- NOTE | 2016-09-24 16:27 | PD ---
HPI Chief Complaint: Related Problem Time Seen by Provider: 15:33 Travel History International Travel<30 days: No Contact w/Intl Traveler<30days: No Traveled to known affect area: No History of Present Illness HPI 31-year-old female 3 para 1 (1 spontaneous miscarriage several months ago) noted to be about 13 weeks arrives due to concern that she might be having another miscarriage. She reports a very brief episode of pain in the suprapubic abdomen and pain in the right abdomen. She denies vaginal bleeding or discharge. No fever or vomiting. The time of ER evaluation she has no abdominal pain. She follows with Dr. Cadet. US showed IUP. She has follow up in 4 days. Patient states she was tested for STDs just recently and they're all negative. She denies any interval intercourse. PFSH Past Medical History Medical History: Denies Significant Hx Hx Anticoagulant Therapy: No Cardiovascular Problems: No Chemotherapy: No Cerebrovascular Accident: No Diabetes: No Diminished Hearing: No Respiratory: No Immunizations Current: Yes Tetanus Vaccination: < 5 Years Influenza Vaccination: Yes ?: : 3 Para: 1 Miscarriage: 1 Past Surgical History Surgical History: No Previous Surgery Hysterectomy: No Social History Alcohol Use: No Tobacco Use: No Substance Use: No Allergies-Medications (Allergen,Severity, Reaction): Coded Allergies: Penicillin (Verified Allergy, Severe, swelling, hives, 09/24/16) Reported Meds & Prescriptions Reported Meds & Active Scripts Active Vitafol Ultra 29-0.6-0.4-200 mg ( Vit W/ Fe Polysacch C) 1 Cap Cap 1 Tab PO DAILY Review of Systems General / Constitutional: No: Fever Genitourinary: No: Discharge, Vaginal Bleeding Physical Exam Narrative GENERAL: 31 yo F, WNWD, NAD SKIN: Warm and dry. HEAD: Normocephalic. GASTROINTESTINAL: Abdomen soft, non-tender, nondistended. MUSCULOSKELETAL: No cyanosis, or edema. BACK: Nontender without obvious deformity. No CVA tenderness. Data Data Last Documented VS Vital Signs Date Time Temp Pulse Resp B/P Pulse Ox O2 Delivery O2 Flow Rate FiO2 09/24/16 15:33 78 18 09/24/16 15:14 98.5 107/60 99 Room Air Vital signs reviewed Orders Urinalysis - C+S If Indicated (09/24/16 15:49) Ed Poc Ultrasound (09/24/16 15:49) MDM Medical Decision Making Medical Screen Exam Complete: Yes Emergency Medical Condition: Yes Medical Record Reviewed: Yes Differential Diagnosis IUP, UTI, ectopic , ov torsion, appendicitis, TOA, cervicitis, BV, Trichomoniasis, ov cyst, hernia, mittelschmerz, pain from menstruation Narrative Course TA sono: IUP w FHR of approx 169 Pt to follow up with Dr Cadet Procedures Procedure Narrative TA sono: IUP w FHR of approx 169 Diagnosis Primary Impression: Intrauterine Referrals: Kathia Lees Additional Instructions: You have a choice when it comes to health care, and we are glad that you chose [facility]. Hopefully, we have met your expectations on today's visit. You are welcome to return to [facility] at any time, as we are committed to meeting the health care needs of our community. Med/Other Pt SpecificInfo: No Change to Meds Disposition: 01 DISCHARGE HOME Condition: Rajat Awad MD Sep 24, 2016 16:26
== END 2016-09-24 16:54 | disposition home or self-care (01) ==
LOC: NEPD 15:11
DX: O26.891 Other specified pregnancy related conditions, first trimester (principal); R10.33 Periumbilical pain; Z3A.13 13 weeks gestation of pregnancy
CPT/HCPCS: 81001; 87086

== ENCOUNTER 2016-10-07 18:21 | Emergency (ER) | payer OTHER ==
[~2016-10-07] VITALS: Ht 152.4 cm; Wt 51.0 kg
[~2016-10-07 18:21] MED LIST changes: +CEPH-460 PO; -FAMO1TAB37 PO
[2016-10-07 18:23] VITALS: BP 108/55; PULSE 78; RESP 20; TEMP 98.3; O2SAT 100
--- NOTE | 2016-10-07 18:40 | PD ---
Physical Exam Time Seen by Provider: 18:40 Narrative 31 y/o female 14 weeks with abdominal pain since yesterday, light vaginal bleeding since this morning. Seen here several times during this . Vital signs reviewed. Seen at triage desk. Awaiting bed placement. Data Data Last Documented VS Vital Signs Date Time Temp Pulse Resp B/P Pulse Ox O2 Delivery O2 Flow Rate FiO2 10/07/16 18:23 98.3 78 20 108/55 100 Room Air [facility] Medical Record Reviewed: Yes Supervised Visit with MARTHA: Tervor Silvestre Oct 07, 2016 18:40
--- NOTE | 2016-10-07 19:06 | PD ---
HPI Chief Complaint: Related Problem Time Seen by Provider: 19:05 Travel History International Travel<30 days: No Contact w/Intl Traveler<30days: No Traveled to known affect area: No History of Present Illness HPI 47 year old female presents to the emergency department for evaluation of right lower pelvic/abdominal pain that started last night around 8pm. She reports pain has improved since this morning. Patient reports being [address] 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 Patient states she had similar pain in the beginning of in July. She states that was found to be an ovarian cyst at that time. Patient denies any fevers or chills. No chest pain or shortness breath. No nausea vomiting. No diarrhea. She does state she had mild spotting of blood this morning, but that has completely resolved. PFSH Past Medical History Hx Anticoagulant Therapy: No Cardiovascular Problems: No Chemotherapy: No Cerebrovascular Accident: No Diabetes: No Diminished Hearing: No Respiratory: No Immunizations Current: Yes ?: : 3 Para: 1 Miscarriage: 1 Past Surgical History Hysterectomy: No Social History Alcohol Use: No Tobacco Use: No Substance Use: No Allergies-Medications (Allergen,Severity, Reaction): Coded Allergies: Penicillin (Verified Allergy, Severe, swelling, hives, 10/07/16) Reported Meds & Prescriptions Reported Meds & Active Scripts Active Keflex (Cephalexin) 500 Mg Cap 500 Mg PO Q8H 5 Days Vitafol Ultra 29-0.6-0.4-200 mg ( Vit W/ Fe Polysacch C) 1 Cap Cap 1 Tab PO DAILY Review of Systems Except as stated in HPI: all other systems reviewed are Neg Physical Exam Narrative GENERAL: Well-nourished, well-developed female patient, ambulatory. Afebrile. SKIN: Focused skin assessment warm/dry. HEAD: Normocephalic. Atraumatic. EYES: No scleral icterus. No injection or drainage. NECK: Supple, trachea midline. No JVD or lymphadenopathy. CARDIOVASCULAR: Regular rate and rhythm without murmurs, gallops, or rubs. RESPIRATORY: Breath sounds equal bilaterally. No accessory muscle use. Lungs sounds are clear to auscultation. GASTROINTESTINAL: Abdomen soft and nondistended. No guarding. MUSCULOSKELETAL: No cyanosis, or edema. BACK: Nontender without obvious deformity. No CVA tenderness. Data Data Last Documented VS Vital Signs Date Time Temp Pulse Resp B/P Pulse Ox O2 Delivery O2 Flow Rate FiO2 10/07/16 18:23 98.3 78 20 108/55 100 Room Air Orders Urinalysis - C+S If Indicated (10/07/16 19:05) Ed Poc Ultrasound (10/07/16 ) Labs Laboratory Tests Test 10/07/16 19:05 Urine Color YELLOW Urine Turbidity HAZY Urine pH 5.5 Urine Specific [place] 1.031 Urine Protein TRACE mg/dL Urine Glucose (UA) NEG mg/dL Urine Ketones NEG mg/dL Urine Occult Blood NEG Urine Nitrite NEG Urine Bilirubin NEG Urine Urobilinogen 2.0 MG/DL Urine Leukocyte Esterase MOD Urine RBC 3 /hpf Urine WBC 2 /hpf Urine Squamous Epithelial 4 /hpf Cells Urine Calcium Oxalate Crystals RARE /hpf Urine Bacteria OCC /hpf Urine Mucus MANY /lpf Microscopic Urinalysis Comment CULT NOT INDICATED MDM Medical Decision Making Medical Screen Exam Complete: Yes Emergency Medical Condition: Yes Medical Record Reviewed: Yes Differential Diagnosis round ligament pain vs. UTI vs appendicitis Narrative Course 31 year old female presents to the emergency department for evaluation of right lower abdominal pain/right pelvic pain. Abdominal exam is benign. Patient appears well on exam with history of the same. Appendicitis not likely. Patient's blood type is A positive. UA is ordered and pending. My attending physician, Dr. Olson, performed bedside US which showed intrauterine , HR 150. UA shows moderate leukocyte esterase, occasional bacteria. Patient will be discharged prescription for Macrobid for bacteriuria in the urine. She is to follow-up with her assistant community director. Patient verbalizes agreement and understanding. She is to return for any acute worsening of symptoms. The patient was discharged in stable condition with instructions, including return instructions and follow up instructions. Diagnosis Primary Impression: Bacteriuria during Referrals: Plant Mechanic 2 days Patient Instructions: General Instructions, Urinary Tract Infection in (ED) Additional Instructions: Take Macrobid as directed until gone. Follow-up with your assistant community director. Return to the emergency department for any acute worsening of symptoms Med/Other Pt SpecificInfo: Prescription(s) given Scripts Nitrofurantoin Monohydrate Macrocrystals (Macrobid)100 Mg [id number] Mg PO BID 7 Days Ref 0 Prov:Irma Dinh 10/07/16 Disposition: 01 DISCHARGE HOME Condition: Stable Irma Dinh Oct 07, 2016 19:05
[2016-10-07 19:35] LABS: BACTERIA, URINE OCC /hpf; BLOOD, URINE NEG (NEG); CALCIUM OXALATE CRYSTALS,URINE RARE /hpf; COMMENT (UR) CULT NOT INDICATED; CULTURE IF INDICATED CULT NOT INDICATED; GLUCOSE,URINE NEG (NEG); KETONE, URINE NEG (NEG); MUCUS URINE MANY /lpf (OCC); NITRITE,URINE NEG (NEG); PH, URINE 5.5 (5.0-8.5); SQUAMOUS EPITHELIAL CELL URINE 4 /hpf (0-5); URINE COLOR YELLOW (YELLW/STRAW)
[2016-10-07] MEDS ORDERED: MACR100C2 PO (19:39)
== END 2016-10-07 19:52 | disposition home or self-care (01) ==
LOC: NEPD 18:21
DX: O26.892 Other specified pregnancy related conditions, second trimester (principal); R82.71 Bacteriuria; R10.2 Pelvic and perineal pain; Z3A.15 15 weeks gestation of pregnancy
CPT/HCPCS: 81001; 99284

== ENCOUNTER 2016-11-06 00:12 | Emergency (ER) | payer MEDICAID, OTHER ==
[~2016-11-06 00:12] MED LIST changes: -CEPH-460 PO
--- NOTE | 2016-11-06 01:00 | PD ---
HPI Chief Complaint LAP pink D/C Date Seen: Nov 06, 2016 Travel History International Travel<30 Days: No Contact w/Intl Traveler<30Days: No Known Affected Area: No History of Present Illness HPI 19 wk IUP with LAP and pink D/C tonite Para: 1 : 3 History Obstetric History Obstetric History 1 vag del Social History Alcohol Use: No Tobacco Use: No Substance Abuse: No Allergies-Medications (Allergen,Severity, Reaction): Coded Allergies: penicillin G (Unverified Allergy, Severe, swelling, hives, 11/03/16) Home Meds Active Scripts Vit W/ Fe Polysacch C (Vitafol Ultra 29-0.6-0.4-200 mg)1 Cap Cap1 Tab PO DAILY #30 BOTTLE Ref 11 Prov:Kathia Lees 09/02/16 Review of Systems General / Constitutional: No: Fever, Weight Gain, Chills, Other Eyes: No: Diploplia, Blurred Vision, Visual changes, Pain, Photophobia HENT: No: Headaches, Vertigo, Lightheadedness Cardiovascular: No: Irregular Rhythm, Chest Pain or Discomfort, Palpitations, Tachycardia, Syncope, Varicosities, Edema, Cyanosis Respiratory: No: Cough, Short of Breath, Other Gastrointestinal: Abdominal Pain, No: Nausea, Vomiting, Diarrhea Genitourinary: No: Decreased Urinary Output, Oliguria Musculoskeletal: No: Limited ROM, Weakness, Cramping, Edema, Pain Skin: No Rash, No Itching, No Dryness, No Lumps, No Change in Pigmentation, No Change in Nails, No Alopecia, No Lesions Neurologic: No: Weakness, Dizziness, Syncope, Focal Abnormalities, Coordination Problem, Headache, Slurred Speech, Seizures Psychiatric: No: Depression, Suicidal Ideations, Homicidal Ideation Endocrine: No: Heat Intolerance, Cold Intolerance, Polydipsia, Polyuria, Other Physical Exam Narrative GENERAL: Well-nourished, well-developed patient. SKIN: Warm and dry. HEAD: Normocephalic and atraumatic. EYES: No scleral icterus. No injection or drainage. ENT: No nasal drainage noted. Mucous membranes pink. Airway patent. NECK: Supple, trachea midline. No JVD. CARDIOVASCULAR: Regular rate and rhythm without murmurs, gallops, or rubs. RESPIRATORY: Breath sounds equal bilaterally. No accessory muscle use. BREASTS: Bilateral exam showed no masses , no retractions, no nipple discharge. ABDOMEN/GI: Abdomen soft, non-tender, bowel sounds present, no rebound, no guarding Gravid to [19-] weeks size Fundal Height: [-at umb] GENITOURINARY: External Genitalia: intact and normal in appearance spec -- no blood at all nl cx no infection Cervix: [-closed] Dilatation: [-0] Effacement: [-0] Station: [-3] Membranes: [intact ] Uterine Contractions: [-none] FHT's: 140s EXTREMITIES: No cyanosis or edema. BACK: Nontender without obvious deformity. No CVA tenderness. NEUROLOGICAL: Awake and alert. Motor and sensory grossly within normal limits. Five out of 5 muscle strength in all muscle groups. Normal speech. MDM Interpretation(s) 19 wk IUP with LAP , pink D/C . FHR 140s, spec exam -- no blood nl cx & vagina Plan D/C home Diagnosis Diagnosis: Primary Impression: Lower abdominal pain, unspecified Additional Impression: Vaginal discharge during in second trimester Disposition: DISCHARGE HOME Condition: Stable Anshul Blood II, MD Nov 06, 2016 01:00
== END 2016-11-06 01:03 | disposition home or self-care (01) ==
LOC: HOBED 00:12
DX: O26.892 Other specified pregnancy related conditions, second trimester (principal); R10.30 Lower abdominal pain, unspecified; N89.8 Other specified noninflammatory disorders of vagina; Z3A.19 19 weeks gestation of pregnancy
CPT/HCPCS: 99284

== ENCOUNTER 2016-11-17 16:51 | Emergency (ER) | payer MEDICAID ==
--- NOTE | 2016-11-17 17:59 | PD ---
HPI Chief Complaint Decreased movement at 5 months Date Seen: Nov 17, 2016 Travel History International Travel<30 Days: No Contact w/Intl Traveler<30Days: No Known Affected Area: No History of Present Illness HPI Patient is a 31-year-old white female at 20-21 weeks presents complaining of decreased movement today. She normally feels the baby move 5-6 times an hour over the last 3 weeks but today almost nothing, she denies bleeding or leakage of fluid or abdominal pain. [facility] Weeks Gestation: 20 Para: 1 : 3 Miscarriage: 1 History Obstetric History Obstetric History 1delivery of the past Social History Alcohol Use: No Tobacco Use: No Substance Abuse: No Allergies-Medications (Allergen,Severity, Reaction): Coded Allergies: penicillin G (Unverified Allergy, Severe, swelling, hives, 11/03/16) Home Meds Active Scripts Vit W/ Fe Polysacch C (Vitafol Ultra 29-0.6-0.4-200 mg) 1 Cap Cap, 1 TAB PO DAILY, #30 BOTTLE 11 Refills Prov:Kathia Lees 09/02/16 Review of Systems General / Constitutional: No: Fever, Weight Gain, Chills, Other Eyes: No: Diploplia, Blurred Vision, Visual changes, Pain, Photophobia HENT: No: Headaches, Vertigo, Lightheadedness Cardiovascular: No: Irregular Rhythm, Chest Pain or Discomfort, Palpitations, Tachycardia, Syncope, Varicosities, Edema, Cyanosis Respiratory: No: Cough, Short of Breath, Other Gastrointestinal: No: Nausea, Vomiting, Diarrhea Genitourinary: No: Decreased Urinary Output, Oliguria Musculoskeletal: No: Limited ROM, Weakness, Cramping, Edema, Pain Skin: No Rash, No Itching, No Dryness, No Lumps, No Change in Pigmentation, No Change in Nails, No Alopecia, No Lesions Neurologic: No: Weakness, Dizziness, Syncope, Focal Abnormalities, Coordination Problem, Headache, Slurred Speech, Seizures Psychiatric: No: Depression, Suicidal Ideations, Homicidal Ideation Endocrine: No: Heat Intolerance, Cold Intolerance, Polydipsia, Polyuria, Other Physical Exam Narrative GENERAL: Well-nourished, well-developed patient. SKIN: Warm and dry. HEAD: Normocephalic and atraumatic. EYES: No scleral icterus. No injection or drainage. ENT: No nasal drainage noted. Mucous membranes pink. Airway patent. NECK: Supple, trachea midline. No JVD. CARDIOVASCULAR: Regular rate and rhythm without murmurs, gallops, or rubs. RESPIRATORY: Breath sounds equal bilaterally. No accessory muscle use. BREASTS: Bilateral exam showed no masses , no retractions, no nipple discharge. ABDOMEN/GI: Abdomen soft, non-tender, bowel sounds present, no rebound, no guarding Gravid to [20-] weeks size Fundal Height: [at umb-] Membranes: [intact ] Uterine Contractions: [none-] FHT's: 140 EXTREMITIES: No cyanosis or edema. BACK: Nontender without obvious deformity. No CVA tenderness. NEUROLOGICAL: Awake and alert. Motor and sensory grossly within normal limits. Five out of 5 muscle strength in all muscle groups. Normal speech. Data Data Orders Orders Ob Poc Ultrasound (11/17/16 ) Labs Bedside ultrasound was done which shows a single intrauterine is reactive on the inside, some male fetus in a breech presentation with growth parameters size equal dates 20 weeks 2 days by today's ultrasound her due date puts her at 20 weeks 5 days this consistent. Posterior placenta on the fundus grade 0 normal anatomy scan done. Amniotic fluid volume within normal limits, cardiac motion documented heart rate in the 140s and is mention prior and the fetus was quite active. MDM Interpretation(s) Patient is a 31-year-old white female at 20-21 weeks who presents complaining of decreased movement for day. The problems noted. Ultrasound done on OB ED shows active fetus size equal dates see ultrasound report in chart Plan Plan to discharge home baby of noted reactive today on ultrasound and she will note the baby's movements and keep track of that Diagnosis Diagnosis: Primary Impression: Decreased movement in Disposition: DISCHARGE HOME Condition: Stable Patient Instructions: General Instructions Departure Forms: Tests/Procedures Anshul Blood II, MD Nov 17, 2016 17:59
== END 2016-11-17 18:23 | disposition home or self-care (01) ==
LOC: HOBED 16:51
DX: O36.8120 Decreased fetal movements, second trimester, not applicable or unspecified (principal); Z3A.20 20 weeks gestation of pregnancy; Z88.0 Allergy status to penicillin
CPT/HCPCS: 76815

== ENCOUNTER 2017-03-26 23:20 | Emergency (ER) | payer MEDICAID ==
[2017-03-26 23:44] VITALS: RESP 18; TEMP 98.1
[2017-03-26 23:46] VITALS: BP 120/76; PULSE 81
--- NOTE | 2017-03-27 00:12 | PD ---
HPI Chief Complaint back pain, pressure Date Seen: Mar 27, 2017 Time Seen: 00:07 Travel History International Travel<30 Days: No Contact w/Intl Traveler<30Days: No Known Affected Area: No History of Present Illness HPI Pt is a 32y/o @ 39.2wks. She has PNC with [facility]. She came in for evaluation of pressure in the vagina and back pain. She denies ctx or LOF. +FM. She was 2-3cm in the clinic this week. Weeks Gestation: 39 Para: 1 : 3 History Past Medical History Medical History: Denies Significant Hx Obstetric History Obstetric History x1 AB x1 Past Surgical History Surgical History: No Previous Surgery Family History Family History: Negative Social History Alcohol Use: No Tobacco Use: No Substance Abuse: No Allergies-Medications (Allergen,Severity, Reaction): Coded Allergies: penicillin G (Unverified Allergy, Severe, swelling, hives, 03/23/17) Home Meds Active Scripts Vit W/ Fe Polysacch C (Vitafol Ultra 29-0.6-0.4-200 mg) 1 Cap Cap, 1 TAB PO DAILY, #30 BOTTLE 11 Refills Prov:Kathia Lees 09/02/16 Review of Systems Except as stated in HPI: all other systems reviewed are Neg Physical Exam Vital Signs Date Time Temp Pulse Resp B/P (MAP) Pulse Ox O2 Delivery O2 Flow Rate FiO2 03/26/17 23:46 81 120/76 (91) 03/26/17 23:44 98.1 18 Narrative General: well developed, well nourished, no acute distress HEENT: normocephalic atraumatic, extraocular movements intact, neck supple Abdomen: soft, gravid, nontender, nondistended Uterus: fundus term Extremities: full range of motion Skin: normal coloration, no rashes, no suspicious skin lesions noted Neurologic: cranial nerves 2-12 grossly intact, normal muscle tone, normal gait Psychiatric: normal mood and affect, appropriate FHTs: 130, +accels, no decels, moderate variability, reactive [place]: irregular ctx not appreciated by pt Cvx: 3/60/-2 (unchanged) Data Data Vital Signs Reviewed: Yes Orders Orders Vital Signs (Adult) .ON ADMISSION (03/26/17 23:28) ^ Labor Status (03/26/17 23:28) ^ Non Stress Test (03/26/17 23:28) Group B Strep: Negative MDM Plan 32y/p @ 39.2wks with ROL. -- cvx unchanged from several days ago -- toco with irregular ctx -- FHTs cat 1 Dispo: d/c home with precautions Diagnosis Diagnosis: Primary Impression: 39 weeks gestation of Additional Impression: Back pain Yan Byers MD Mar 27, 2017 00:12
== END 2017-03-27 00:26 | disposition home or self-care (01) ==
LOC: HOBED 23:20
DX: O26.893 Other specified pregnancy related conditions, third trimester (principal); M54.9 Dorsalgia, unspecified; R10.2 Pelvic and perineal pain; Z3A.39 39 weeks gestation of pregnancy; Z88.0 Allergy status to penicillin
CPT/HCPCS: 99283

== ENCOUNTER 2017-03-29 18:56 | Emergency (ER) | payer MEDICAID ==
--- NOTE | 2017-03-29 20:10 | PD ---
HPI Chief Complaint Contractions Date Seen: Mar 29, 2017 Time Seen: 20:05 Travel History International Travel<30 Days: No Contact w/Intl Traveler<30Days: No Known Affected Area: No History of Present Illness HPI 32-year-old who is at 39 weeks 4 days comes in due to contractions. Patient was having contractions every 5-10 minutes at home but since she has arrived here patient states that her contractions seem to have disappeared. She had an exam 2 days ago and her cervix was 3 cm. No compilations during this and she has a OB visit set up for tomorrow. She is group B strep negative Weeks Gestation: 39 Para: 1 : 3 History Past Medical History Medical History: Denies Significant Hx Obstetric History Obstetric History Spontaneous vaginal delivery, 6 lbs. 8 oz. Past Surgical History Surgical History: No Previous Surgery Family History Family History: Negative Social History Alcohol Use: No Tobacco Use: No (former smoker patient quit smoking in 2014) Substance Abuse: No Allergies-Medications (Allergen,Severity, Reaction): Coded Allergies: penicillin G (Unverified Allergy, Severe, swelling, hives, 03/23/17) Home Meds Active Scripts Vit W/ Fe Polysacch C (Vitafol Ultra 29-0.6-0.4-200 mg) 1 Cap Cap, 1 TAB PO DAILY, #30 BOTTLE 11 Refills Prov:Kathia Lees 09/02/16 Review of Systems Except as stated in HPI: all other systems reviewed are Neg Physical Exam Narrative GENERAL: Well-nourished, well-developed patient. SKIN: Warm and dry. HEAD: Normocephalic and atraumatic. EYES: No scleral icterus. No injection or drainage. ENT: No nasal drainage noted. Mucous membranes pink. Airway patent. NECK: Supple, trachea midline. No JVD. CARDIOVASCULAR: Regular rate and rhythm without murmurs, gallops, or rubs. RESPIRATORY: Breath sounds equal bilaterally. No accessory muscle use. ABDOMEN/GI: Abdomen soft, non-tender, bowel sounds present, no rebound, no guarding Gravid to [-38] weeks size Fundal Height: [-] GENITOURINARY: External Genitalia: intact and normal in appearance BUS glands: [Normal-] Cervix: [-] Posterior Dilatation: [-] 3 Effacement: [-] 50 Station: [-] High, ballotable Presentation: [-] Vertex Membranes: [intact or ruptured] intact with a negative amnisure Uterine Contractions: [-] Single contraction FHT's: Category: [-] 1 Baseline: [-] 140, approximately 1-2 minutes of maternal heart rate noted on the monitor Reactive: [-] Moderate Variability: [-] Moderate Decels: [-] Absent EXTREMITIES: No cyanosis or edema. BACK: Nontender without obvious deformity. No CVA tenderness. NEUROLOGICAL: Awake and alert. Motor and sensory grossly within normal limits. Five out of 5 muscle strength in all muscle groups. Normal speech. Data Data Vital Signs Reviewed: Yes Group B Strep: Negative MDM Medical Record Reviewed: Yes Plan 32-year-old at 39 weeks 4 days with false labor. No consistent contraction pattern since she has arrived here. Follow-up with OB provider as scheduled Diagnosis Diagnosis: Primary Impression: 39 weeks gestation of Additional Impression: False labor after 37 weeks of gestation without delivery Disposition: 01 DISCHARGE HOME Marcela Doyle MD Mar 29, 2017 20:10
== END 2017-03-29 21:00 | disposition home or self-care (01) ==
LOC: HOBED 18:56
DX: O47.1 False labor at or after 37 completed weeks of gestation (principal); Z3A.39 39 weeks gestation of pregnancy
CPT/HCPCS: 59025; 84112

== ENCOUNTER 2017-04-08 06:23 | Inpatient (IN) | payer MEDICAID ==
[~2017-04-08] VITALS: Ht 152.4 cm; Wt 61.0 kg
[2017-04-08] VITALS (17 sets, daily range): BP systolic 102–126; BP diastolic 62–71; PULSE 74–90; RESP 18; TEMP 98.1–98.2; O2SAT 95–99
[2017-04-08] MEDS ORDERED: LIDOCAINE HCL 1% 50 ML VIAL INFIL PRN (06:45)
[2017-04-08] MEDS ORDERED: NS 500 ML BOLUS IV PRN (06:45)
[2017-04-08] MEDS ORDERED: CITRIC ACID-SODIUM CITRATE LIQ 30 ML UDC PO SCH (06:45)
[2017-04-08] MEDS ORDERED: LACTATED RINGER'S 1000 ML BOLUS IV PRN (06:45)
[2017-04-08] MEDS ORDERED: ONDANSETRON HCL 4 MG/2 ML VIAL IV PUSH PRN (06:45)
[2017-04-08] MEDS ORDERED: LACTATED RINGER'S 1000 ML IV SCH (06:45)
[2017-04-08] MEDS ORDERED: NS 1000 ML IV PRN (06:45)
[2017-04-08] MEDS ORDERED: OXYTOCIN 30 UNITS 500ML PREMIX IV ONE (06:45)
[2017-04-08] MEDS ORDERED: MINERAL OIL 10 ML VIAL TOPICAL PRN (06:45)
[2017-04-08] MEDS ORDERED: LIDOCAINE HCL 1% 50 ML VIAL I-DERMAL PRN (06:45)
--- NOTE | 2017-04-08 07:14 | HHI.HP ---
HPI Chief Complaint Induction of labor Travel History International Travel<30 Days: No Contact w/Intl Traveler<30Days: No Known Affected Area: No History of Present Illness HPI 32-year-old 001, IUP at 41.0 care complicated by post term , elevated 1 hour with normal 3 hour glucose testing, PCN allergy The patient presents for scheduled induction of labor at 41 weeks and 0 days. She reports good movement. She reports irregular contractions. She denies any leaking of fluid or vaginal bleeding. She has no other complaints or concerns this morning. She does desire a bilateral tubal ligation if delivery is indicated. Weeks Gestation: 41 Para: 1 : 3 History Past Medical History Medical History: Denies Significant Hx Obstetric History Obstetric History 1 SAB 1 Past Surgical History Surgical History: No Previous Surgery Family History Family History: Negative Social History Alcohol Use: No Tobacco Use: No Substance Abuse: No Allergies-Medications (Allergen,Severity, Reaction): Coded Allergies: penicillin G (Unverified Allergy, Severe, swelling, hives, 04/06/17) Home Meds Active Scripts Vit W/ Fe Polysacch C (Vitafol Ultra 29-0.6-0.4-200 mg) 1 Cap Cap, 1 TAB PO DAILY, #30 BOTTLE 11 Refills Prov:Kathia Lees 09/02/16 Review of Systems Except as stated in HPI: all other systems reviewed are Neg Physical Exam Vital Signs Date Time Temp Pulse Resp B/P (MAP) Pulse Ox O2 Delivery O2 Flow Rate FiO2 04/08/17 06:50 85 04/08/17 06:45 90 04/08/17 06:40 83 04/08/17 06:38 86 119/68 (85) 04/08/17 06:35 81 Narrative GENERAL: Well-nourished, well-developed patient. SKIN: Warm and dry. HEAD: Normocephalic and atraumatic. EYES: No scleral icterus. No injection or drainage. ENT: No nasal drainage noted. Mucous membranes pink. Airway patent. NECK: Supple, trachea midline. No JVD. CARDIOVASCULAR: Regular rate and rhythm without murmurs, gallops, or rubs. RESPIRATORY: Breath sounds equal bilaterally. No accessory muscle use. BREASTS: Deferred ABDOMEN/GI: Abdomen soft, non-tender, bowel sounds present, no rebound, no guarding Gravid GENITOURINARY: External Genitalia: intact and normal in appearance. Grossly normal BUS, rugae. No cervical or vaginal masses appreciated. SVE 3/70/-2/posterior/soft. vertex palpated. Physiologic discharge noted. FHT's: heart tones with baseline in the 120s, moderate long-term variability, good accelerations, no decelerations noted. This is a category 1 heart rate tracing and reactive NST. EXTREMITIES: No cyanosis or edema. BACK: Nontender without obvious deformity. NEUROLOGICAL: Awake and alert. Motor and sensory grossly within normal limits. Five out of 5 muscle strength in all muscle groups. Normal speech. Psychiatric: Grossly normal memory and affect Musculoskeletal: Grossly normal range of motion, gait, muscle strength Caprini VTE Risk Assessment Caprini VTE Risk Assessment: No/Low Risk (score <= 1) Caprini Risk Assessment Model Point Value = 1 Point Value = 2 Point Value = 3 Point Value = 5 Age 41-60 Minor surgery BMI > 25 kg/m2 Swollen legs Varicose veins or History of unexplained or recurrent spontaneous Oral contraceptives or hormone replacement Sepsis (< 1 month) Serious lung disease, including pneumonia (< 1 month) Abnormal pulmonary function Acute myocardial infarction Congestive heart failure (< 1 month) History of inflammatory bowel disease Medical patient at bed rest Age 61-74 Arthroscopic surgery Major open surgery (> 45 min) Laparoscopic surgery (> 45 min) Malignancy Confined to bed (> 72 hours) Immobilizing plaster cast Central venous access Age >= 75 History of VTE Family history of VTE Factor V Leiden Prothrombin [id number] Lupus anticoagulant Anticardiolipin antibodies Elevated serum homocysteine Heparin-induced thrombocytopenia Other congenital or acquired thrombophilia Stroke (< 1 month) Elective arthroplasty Hip, pelvis, or leg fracture Acute spinal cord injury (< 1 month) Prophylaxis Regimen Total Risk Factor Score Risk Level Prophylaxis Regimen 0-1 Low Early ambulation 2 Moderate Order ONE of the following: *Sequential Compression Device (SCD) *Heparin 5000 units SQ BID 3-4 Higher Order ONE of the following medications: *Heparin 5000 units SQ TID *Enoxaparin/Lovenox 40 mg SQ daily (WT < 150 kg, CrCl > 30 mL/min) *Enoxaparin/Lovenox 30 mg SQ daily (WT < 150 kg, CrCl > 10-29 mL/min) *Enoxaparin/Lovenox 30 mg SQ BID (WT < 150 kg, CrCl > 30 mL/min) AND/OR *Sequential Compression Device (SCD) 5 or more Highest Order ONE of the following medications: *Heparin 5000 units SQ TID (Preferred with Epidurals) *Enoxaparin/Lovenox 40 mg SQ daily (WT < 150 kg, CrCl > 30 mL/min) *Enoxaparin/Lovenox 30 mg SQ daily (WT < 150 kg, CrCl > 10-29 mL/min) *Enoxaparin/Lovenox 30 mg SQ BID (WT < 150 kg, CrCl > 30 mL/min) AND *Sequential Compression Device (SCD) Data Data Orders Orders Lactated Ringer's 1000 Ml Inj (Lr 1000 M (04/08/17 06:45) Lactated Ringer's 1000 Ml Inj (Lr 1000 M (04/08/17 06:45) Sodium Chlorid 0.9% 500 Ml Inj (Ns 500 M (04/08/17 06:45) Sodium Chlor 0.9% 1000 Ml Inj (Ns 1000 M (04/08/17 06:45) Lidocaine 1% Inj (50 Ml) (Xylocaine 1% I (04/08/17 06:45) Citric Acid-Sodium Citrate Liq (Bicitra (04/08/17 06:45) Ondansetron Inj (Zofran Inj) (04/08/17 06:45) Fentanyl Inj (Fentanyl Inj) (04/08/17 06:45) Fentanyl Inj (Fentanyl Inj) (04/08/17 06:45) Oxytocin 30 Units-500ml Premix (Pitocin (04/08/17 06:45) Lidocaine 1% Inj (50 Ml) (Xylocaine 1% I (04/08/17 06:45) Light Mineral Oil (Muri-Lube Oil) (04/08/17 06:45) Admit To Inpatient (04/08/17 ) Vital Signs (Adult) .Per protocol (04/08/17 06:41) Activity Oob Ad Lani (04/08/17 06:41) Heart (04/08/17 06:41) Amnioinfusion (04/08/17 06:41) Urinary Catheter Management .ONCE (04/08/17 06:41) Diet Liquid (04/08/17 Breakfast) Complete Blood Count With Diff (04/08/17 06:41) Hold Clot (04/08/17 06:41) Abo/Rh Blood Type (04/08/17 06:41) Urinalysis - C+S If Indicated (04/08/17 06:41) Drug Screen, Random Urine (04/08/17 06:41) Resp Oxygen Non Rebreathe Mask (04/08/17 ) ^ Epidural / Intrathecal Infus (04/08/17 06:41) Assessment/Plan Assessment and Plan Assessment/plan: 1. IUP at 41.0 2. Induction of labor: Patient presents for a post term induction of labor at 41 weeks. She has a favorable cervix so will be started on oxytocin. The risks , benefits, and alternatives to induction of labor were discussed and the patient is in agreement with proceeding. The indications and risks of delivery were discussed if medically indicated. We discussed risks of pain, infection, bleeding, injury to other organs like the bladder/bowel/nerves/ vessels, injury to the baby, need for blood transfusion, need for hysterectomy, need for repeat operation, wound infection or breakdown, and other possible risks. All the patient's questions were answered and we will proceed with oxytocin induction of labor. 3. Contraception: The patient desires permanent surgical sterilization if she undergoes delivery. We discussed this is permanent and irreversible and cannot be undone if she changed her mind in the future. We discussed that there are alternatives that are just as effective but can be removed. We discussed the risks of tubal ligation including approximately 1% failure rate with risks of ectopic that may require medication and or surgical intervention. The patient has no questions and desires to proceed in the event she would require delivery for maternal or indications. 4. Penicillin allergy 5. GBS negative 6. Elevated 1 hour with normal 3 hour 7. well-being: heart rate tracing is reassuring with a category 1 heart rate tracing and reactive NST we will continue monitoring. Kathia Carbajal MD Apr 08, 2017 07:14
[2017-04-08] MEDS ORDERED: OXYTOCIN 30 UNITS-500ML PREMIX 500 ML IV SCH ×2 (07:15→16:00)
[2017-04-08 07:36] LABS: AUTOMATED NEUTROPHIL # 7.3 TH/MM3 (1.8-7.7); BASOPHIL # 0.1 TH/MM3 (0-0.2); BASOPHIL % 0.5 % (0.0-2.0); EOSINOPHIL # 0.1 TH/MM3 (0-0.4); EOSINOPHIL % 1.4 % (0.0-4.0); HEMATOCRIT 31.1 % (35.0-46.0); HEMOGLOBIN 10.6 GM/DL (11.6-15.3); LYMPH % 19.7 % (9.0-44.0); MEAN CELL VOLUME 82.3 FL (80.0-100.0); MEAN CORPUSCULAR HEMOGLOBIN 28.2 PG (27.0-34.0); MEAN CORPUSCULAR HGB CONC 34.2 % (32.0-36.0); MEAN PLATELET VOLUME 8.5 FL (7.0-11.0); MONO % 7.1 % (0.0-8.0); MONOCYTE # 0.7 TH/MM3 (0-0.9); NEUT % 71.3 % (16.0-70.0); PLATELET COUNT 278 TH/MM3 (150-450); RED BLOOD COUNT 3.78 MIL/MM3 (4.00-5.30); RED CELL DISTRIBUTION WIDTH 16.4 % (11.6-17.2); WHITE BLOOD COUNT 10.2 TH/MM3 (4.0-11.0)
[2017-04-08 07:45] LABS: BACTERIA, URINE MANY /hpf; BILIRUBIN, URINE NEG (NEG); BLOOD, URINE TRACE (NEG); GLUCOSE,URINE NEG (NEG); KETONE, URINE NEG (NEG); MUCUS URINE FEW /lpf (OCC); NITRITE,URINE NEG (NEG); SQUAMOUS EPITHELIAL CELL URINE 14 /hpf (0-5); URINE COLOR YELLOW (YELLW/STRAW); URINE LEUKOCYTE ESTERASE LARGE (NEG)
[2017-04-08] MEDS ORDERED: fentaNYL 2MCG-BUPIV 0.125% INJ 100 ML ONE (10:08)
--- NOTE | 2017-04-08 15:02 | PD.LABORPN ---
Subjective Subjective Patient doing well; no concerns at this time Objective Vital Signs Vital Signs Date Time Temp Pulse Resp B/P (MAP) Pulse Ox O2 Delivery O2 Flow Rate FiO2 04/08/17 12:30 80 04/08/17 12:30 18 04/08/17 12:30 77 102/63 (76) 04/08/17 12:30 76 04/08/17 12:25 88 04/08/17 12:25 88 04/08/17 12:20 79 04/08/17 12:20 77 04/08/17 12:15 74 04/08/17 12:15 77 04/08/17 12:15 76 112/63 (79) 04/08/17 07:00 83 04/08/17 06:55 79 Objective Pelvic Exam: Cervix: Dilatation: 7-8 Effacement:90% Station: -1 Presentation: V Membranes: AROM 1455 Uterine Contractions: Y; FHT's: Category: 1 Baseline: 130 Reactive: Y Variability: Mod Decels: some early decelerations Weeks Gestation: 41 Pt started active labor?: Yes Assessment/Plan Problem List: (1) 41 weeks gestation of ICD Codes: Z3A.41 - 41 weeks gestation of Assessment and Plan 32 yo undergoing induction of labor with Pitocin at 41 weeks -Reactive tracing -s/p Epidural at ~1000 -AROM at 1455; clear fluid- Cervix 7-8%, 90-100% effaced -Normal maternal VS -Continue to monitor EFM/CTG -Will recheck cervix in 1 hr Derick Oliver MD, R3 Apr 08, 2017 15:02
[2017-04-08] MEDS ORDERED: WITCH HAZEL 50%/GLYCERIN 12.5% 40 PAD JAR TOPICAL PRN (16:00)
[2017-04-08] MEDS ORDERED: BENZOCAINE 20% TOPICAL SPRAY 60 ML CAN TOPICAL PRN (16:00)
[2017-04-08] MEDS ORDERED: ALUMINUM/MAGNESIUM/SIMETH 30 ML CUP PO PRN (16:00)
[2017-04-08] MEDS ORDERED: ACETAMINOPHEN 325 MG TAB PO PRN (16:00)
[2017-04-08] MEDS ORDERED: SODIUM CHLORIDE 0.9% FLUSH 10 ML FLUSH IV FLUSH PRN (16:00)
[2017-04-08] MEDS ORDERED: ONDANSETRON ODT 4 MG TAB PO PRN (16:00)
[2017-04-08] MEDS ORDERED: DOCUSATE SODIUM 50 MG/SENNA 8.6 MG TAB PO PRN (16:00)
[2017-04-08] MEDS ORDERED: ZOLPIDEM TARTRATE 5 MG TAB PO PRN (16:00)
[2017-04-08] MEDS ORDERED: MEASLES, MUMPS, RUBELLA VACCINE 0.5 ML VIAL SQ ONE (16:00)
[2017-04-08] MEDS ORDERED: oxyCODONE/ACETAMINOPHEN 5 MG/325 MG TAB PO PRN (16:00)
[2017-04-08] MEDS ORDERED: DIPHTH/TETANUS/ACEL PERTUSSIS (BOOSTER) 0.5 ML VIAL/PFS IM ONE (16:00)
--- NOTE | 2017-04-08 16:11 | PD.OB.DELI ---
Weeks gestation: 41 Pt started active labor?: Yes Medical induction of labor?: Yes Artificial rupture of membrane: Yes Anesthesia: Epidural Episiotomy: None Vaginal Delivery: Normal Presentation: Occiput anterior Nuchal Cord: x1 Delayed cord clamping (45 sec): Yes Shoulder Dystocia: Suprapubic pressure given, Henry maneuver done, Other ( posterior arm) : Male, Single Delivery date: Apr 08, 2017 Delivery time: 15:21 One Minute : 7 Five Minute : 9 Weight: 3060 Placenta: Spontaneous delivery, Intact, 3 vessel cord, Cord pH Repair: Vicryl running (1' lac, vicryl) Estimated blood loss: 150cc Yan Byers MD Apr 08, 2017 16:11
[2017-04-08] MEDS ORDERED: SODIUM CHLORIDE 0.9% FLUSH 10 ML FLUSH IV FLUSH SCH (21:00)
[2017-04-08] MEDS: IBUPROFEN 800 MG TAB PO PRN (22:18)
[2017-04-08] MEDS: oxyCODONE/ACETAMINOPHEN 5 MG/325 MG TAB PO PRN (22:18)
[2017-04-09] MEDS: IBUPROFEN 800 MG TAB PO PRN ×2 (06:02→14:00)
[2017-04-09] MEDS: oxyCODONE/ACETAMINOPHEN 5 MG/325 MG TAB PO PRN (06:02)
[2017-04-09 08:00] VITALS: BP 107/66; PULSE 73; RESP 18; TEMP 97.8; O2SAT 98
--- NOTE | 2017-04-09 09:10 | HHI.OB ---
Subjective Post Day: 1 Remarks day #1. AFVSS overnight. Pain controlled with medications. Decreased lochia. Denies dysuria. No breast tenderness. She is feeding the baby via breast. Appetite good. No nausea or vomiting. Endorses flatus. No bowel movement. Ambulating well. Denies calf pain, shortness of breath, or cough. Otherwise, she is doing well this morning and has no other complaints. Objective Vitals/I&O Vital Signs Date Time Temp Pulse Resp B/P (MAP) Pulse Ox O2 Delivery O2 Flow Rate FiO2 04/08/17 20:00 98.1 80 18 123/71 (88) 95 04/08/17 18:00 98.2 80 18 126/67 (86) 99 04/08/17 15:10 83 04/08/17 15:10 82 04/08/17 15:05 77 04/08/17 15:05 77 04/08/17 15:01 74 114/62 (79) 04/08/17 15:00 80 04/08/17 15:00 82 04/08/17 12:30 80 04/08/17 12:30 18 04/08/17 12:30 77 102/63 (76) 04/08/17 12:30 76 04/08/17 12:25 88 04/08/17 12:25 88 04/08/17 12:20 79 04/08/17 12:20 77 04/08/17 12:15 74 04/08/17 12:15 77 04/08/17 12:15 76 112/63 (79) Objective Remarks GENERAL: Well-nourished, well-developed patient. CARDIOVASCULAR: Regular rate and rhythm without murmurs, gallops, or rubs. RESPIRATORY: Breath sounds equal bilaterally. No accessory muscle use. ABDOMEN/GI: Abdomen soft, non-tender. Fundus: Firm, non-tender at umbilicus. GENITOURINARY: Light to moderate bleeding. EXTREMITIES: No cyanosis or edema, non-tender, without signs of DVT. Medications and IVs Current Medications Medications (Trade) Dose Ordered Sig/Sergio Route Start Time Stop Time Status Last Admin (NS Flush) 2 ml BID IV FLUSH 04/08/17 21:00 (NS Flush) 2 ml UNSCH PRN IV FLUSH 04/08/17 16:00 (Tylenol) 650 mg Q4H PRN PO 04/08/17 16:00 (Motrin) 800 mg Q8H PRN PO 04/08/17 16:00 04/09/17 06:02 (Percocet 5-325 Mg) 1 tab Q4H PRN PO 04/08/17 16:00 (Percocet 5-325 Mg) 2 tab Q4H PRN PO 04/08/17 16:00 04/09/17 06:02 (Americaine 20% Top Spr) 1 spray Q4H PRN TOPICAL 04/08/17 16:00 (Tucks Pads) 1 applic QID PRN TOPICAL 04/08/17 16:00 (Kacy-Colace) 2 tab Q12H PRN PO 04/08/17 16:00 (Ambien) 5 mg HS PRN PO 04/08/17 16:00 (Mag-Al Plus Susp Liq) 15 ml Q8H PRN PO 04/08/17 16:00 (Zofran Odt) 4 mg Q6H PRN PO 04/08/17 16:00 (Flu (Quadrivalent) Vaccine Inj) 0.5 ml ONCE ONCE IM 04/09/17 10:00 04/09/17 10:01 04/08/17 22:19 Assessment/Plan Assessment and Plan 32y/o who is PPD#1 s/p . -Continue routine care. -Percocet and Motrin PRN pain. -Encouraged OOB. Advised pelvic rest for 6 wks. -Will need a f/u appt. within 6 wks. -Re: ctrl, she is undecided -D/c in 1-2 more days. Freddy Sheth MD Apr 09, 2017 09:10
[2017-04-09] MEDS ORDERED: INFLUENZA VIRUS VACCINE (QUADRIVALENT) 0.5 ML SYR IM ONE (10:00)
[2017-04-09 19:48] VITALS: BP 126/71; PULSE 68; RESP 14; TEMP 98.1; O2SAT 99
[2017-04-10] MEDS: IBUPROFEN 800 MG TAB PO PRN (01:46)
[2017-04-10] MEDS: oxyCODONE/ACETAMINOPHEN 5 MG/325 MG TAB PO PRN (01:47)
[2017-04-10] MEDS ORDERED: IBUP1TAB7 PO (07:33)
[2017-04-10] MEDS ORDERED: PERI PO (07:33)
--- NOTE | 2017-04-10 07:43 | HHI.OB ---
Subjective Post Day: 2 Remarks day #2. AFVSS overnight. Pain controlled. Decreased lochia. Denies dysuria. No breast tenderness. She is feeding the baby via breast. Appetite good. No nausea or vomiting. Endorses flatus. No bowel movement. Ambulating well. Denies calf pain, shortness of breath, or cough. Otherwise, she is doing well this morning and has no other complaints. Objective Vitals/I&O Vital Signs Date Time Temp Pulse Resp B/P (MAP) Pulse Ox O2 Delivery O2 Flow Rate FiO2 04/09/17 19:48 98.1 68 14 126/71 (89) 99 04/09/17 08:00 97.8 98 04/09/17 08:00 107/66 (80) 04/09/17 08:00 73 18 Objective Remarks GENERAL: Well-nourished, well-developed patient. CARDIOVASCULAR: Regular rate and rhythm without murmurs, gallops, or rubs. RESPIRATORY: Breath sounds equal bilaterally. No accessory muscle use. ABDOMEN/GI: Abdomen soft, non-tender. Fundus: Firm, non-tender at umbilicus. GENITOURINARY: Light to moderate bleeding. EXTREMITIES: No cyanosis or edema, non-tender, without signs of DVT. Medications and IVs Current Medications Medications (Trade) Dose Ordered Sig/Sergio Route Start Time Stop Time Status Last Admin (NS Flush) 2 ml BID IV FLUSH 04/08/17 21:00 (NS Flush) 2 ml UNSCH PRN IV FLUSH 04/08/17 16:00 (Tylenol) 650 mg Q4H PRN PO 04/08/17 16:00 (Motrin) 800 mg Q8H PRN PO 04/08/17 16:00 04/10/17 01:46 (Percocet 5-325 Mg) 1 tab Q4H PRN PO 04/08/17 16:00 04/09/17 14:01 (Percocet 5-325 Mg) 2 tab Q4H PRN PO 04/08/17 16:00 04/10/17 01:47 (Americaine 20% Top Spr) 1 spray Q4H PRN TOPICAL 04/08/17 16:00 (Tucks Pads) 1 applic QID PRN TOPICAL 04/08/17 16:00 (Kacy-Colace) 2 tab Q12H PRN PO 04/08/17 16:00 (Ambien) 5 mg HS PRN PO 04/08/17 16:00 (Mag-Al Plus Susp Liq) 15 ml Q8H PRN PO 04/08/17 16:00 (Zofran Odt) 4 mg Q6H PRN PO 04/08/17 16:00 Assessment/Plan Problem List: (1) 41 weeks gestation of ICD Codes: Z3A.41 - 41 weeks gestation of Assessment and Plan 32y/o who is PPD#2 s/p . -Continue routine care. -Percocet and Motrin PRN pain. -Encouraged OOB. Advised pelvic rest for 6 wks. -Will need a f/u appt. within 6 wks. -Re: ctrl, she wants a tubal ligation -D/c today Freddy Sheth MD Apr 10, 2017 07:43
--- NOTE | 2017-04-10 08:02 | HHI.DCPOC ---
Discharge Care Plan Diagnosis: (1) care following vaginal delivery Report Symptoms to Your Doctor -Temperature above 100.5 degrees -Redness, of incision or excessive or foul smelling drainage -Unusual pain or calf pain -Increased vaginal bleeding -Painful or difficulty urinating -Feelings of extreme sadness or anxiety after 2 weeks Goals to Promote Your Health * To prevent worsening of your condition and complications * To maintain your health at the optimal level Directions to Meet Your Goals Take your medications as prescribed Follow your dietary instruction Follow activity as directed Ensure plenty of rest for recovery Drink fluids for hydration Keep your appointments as scheduled Take your immunizations and boosters as scheduled If your symptoms worsen call your PCP, if no PCP go to Urgent Care Center or Emergency Room Smoking is Dangerous to Your Health. Avoid second hand smoke Call the 24-hour crisis hotline for domestic abuse at Freddy Sheth MD Apr 10, 2017 08:02
[2017-04-10 08:10] VITALS: BP 115/71; PULSE 73; RESP 16; TEMP 98
== END 2017-04-10 11:37 | disposition home or self-care (01) | DRG 775 ==
LOC: H2EB 06:23 → H1EA 17:48
PROVIDERS: ADMIT Obstetrics & Gynecology; ATTEND Obstetrics & Gynecology
PROC: 10E0XZZ Delivery of Products of Conception, External Approach (ICD-10-PCS; principal; 2017-04-08)
PROC: 3E033VJ Introduction of Other Hormone into Peripheral Vein, Percutaneous Approach (ICD-10-PCS; 2017-04-08)
PROC: 10907ZC Drainage of Amniotic Fluid, Therapeutic from Products of Conception, Via Natural or Artificial Opening (ICD-10-PCS; 2017-04-08)
PROC: 0HQ9XZZ Repair Perineum Skin, External Approach (ICD-10-PCS; 2017-04-08)
DX: O48.0 Post-term pregnancy (principal); O76 Abnormality in fetal heart rate and rhythm complicating labor and delivery; O69.81X0 Labor and delivery complicated by cord around neck, without compression, not applicable or unspecified; O70.9 Perineal laceration during delivery, unspecified; O66.0 Obstructed labor due to shoulder dystocia; Z3A.41 41 weeks gestation of pregnancy; Z37.0 Single live birth; Z88.0 Allergy status to penicillin; Z23 Encounter for immunization
CPT/HCPCS: 59025; 80307; 81001; 85025; 86900; 86901; 87086; 90686; Q2038